=== PATIENT | female | born 1985 | race Caucasian/White ===

== ENCOUNTER 2023-05-14 07:11 | Inpatient (IN) | payer BC ==
[2023-05-13 14:10] VITALS: BMI 35.7
[2023-05-14] MEDS ORDERED: PROPOFOL 20 ML ONE (10:05)
[2023-05-14] MEDS ORDERED: Fentanyl 250 MCG/5 ML VIAL ONE (10:05)
[2023-05-14] MEDS ORDERED: Rocuronium Bromide 10 MG/ML (10ML VIAL) ONE ×2 (10:07→13:25)
[2023-05-14] MEDS ORDERED: Lidocaine 1% PF 5 ML VIAL ONE (10:07)
[2023-05-14] MEDS ORDERED: EPINEPHrine 1 MG/ML VIAL ONE (10:59)
[2023-05-14] MEDS ORDERED: Thrombin 5000 UNITS/5 ML VIAL ONE (10:59)
[2023-05-14] MEDS ORDERED: Vancomycin 1 GM VIAL ONE ×2 (10:59→14:31)
[2023-05-14] MEDS ORDERED: Bupivacaine 0.25% HCL 30 ML VIAL ONE (10:59)
[2023-05-14] MEDS ORDERED: Bupivacaine PF 0.5% 30 ML VIAL ONE (10:59)
[2023-05-14] MEDS ORDERED: Sodium Chloride 0.9% 100 ML ONE (11:10)
[2023-05-14] MEDS ORDERED: CEFAZOLIN 2 GM VIAL ONE (11:10)
[2023-05-14] MEDS ORDERED: Promethazine HCl 12.5 MG SUPP PR PRN (11:46)
[2023-05-14] MEDS ORDERED: diphenhydrAMINE 50 MG/ML VIAL IVP PRN (11:46)
[2023-05-14] MEDS ORDERED: Acetaminophen 325 MG TAB PO PRN (11:46)
[2023-05-14] MEDS ORDERED: HYDROcodone/Acetaminophen 7.5/325 mg Tablet PO PRN (11:46)
[2023-05-14] MEDS ORDERED: Bisacodyl 10 MG SUPP PR PRN (11:46)
[2023-05-14] MEDS ORDERED: Mag-Al 1200 mg/1200 mg/30 ML UDCUP PO PRN (11:46)
[2023-05-14] MEDS ORDERED: CEFAZOLIN 2 GM in Sodium Chloride 0.9% 100 ML IVPB SCH (12:00)
[2023-05-14] MEDS ORDERED: Dexamethasone 20 MG/5 ML VIAL ONE (12:32)
[2023-05-14] MEDS ORDERED: Ondansetron PF 4 MG/2 ML Vial ONE (15:21)
[2023-05-14] MEDS ORDERED: SUGAMMADEX SODIUM 200 MG/2 ML VIAL ONE (15:49)
[2023-05-14] MEDS ORDERED: HYDROmorphone 2 MG/ML VIAL SLOW IVP PRN (16:14)
[2023-05-14] MEDS ORDERED: Promethazine HCl 25 MG/ML VIAL IM PRN (16:14)
[2023-05-14] MEDS ORDERED: Ondansetron HCl/PF 4 MG/2 ML Vial IVP PRN (16:14)
[2023-05-14] MEDS ORDERED: HYDROmorphone 0.5 MG/0.5 ML SYRINGE ONE ×3 (16:14→16:31)
[2023-05-14] MEDS ORDERED: fentaNYL PF 100 MCG/2 ML SYRINGE ONE ×2 (16:40→16:57)
[2023-05-14] MEDS ORDERED: fentaNYL 50 mcg/mL 1 mL Vial ONE (17:24)
[2023-05-14] MEDS: HYDROcodone/Acetaminophen 10/325 mg Tablet PO PRN (19:29)
[2023-05-14] MEDS: BuPROPion XL 150 MG ER.TAB PO SCH (19:29)
[2023-05-14] MEDS: CEFAZOLIN 2 GM in Sodium Chloride 0.9% 100 ML IVPB SCH (19:30)
[2023-05-14] MEDS: Sodium Chloride 0.9% 1,000 ML IV SCH (19:31)
[2023-05-14] MEDS: Morphine 2 MG/ML VIAL SLOW IVP PRN (21:11)
[2023-05-14] MEDS: tiZANidine HCl 4 MG TAB PO PRN (21:11)
[2023-05-14] MEDS: Ondansetron PF 4 MG/2 ML Vial IVP PRN (21:11)
[2023-05-15] MEDS: Acetaminophen/Codeine 30-300mg Tablet PO PRN (20:39)
[2023-05-16 08:09] VITALS: BP 99/66; TEMP 99
== END 2023-05-16 17:42 | disposition home or self-care (01) | DRG 30 ==
LOC: SURG A 07:11
PROVIDERS: ADMIT Neurological Surgery; ATTEND Neurological Surgery
PROC: 001U0J6 Bypass Spinal Canal to Peritoneal Cavity with Synthetic Substitute, Open Approach (ICD-10-PCS; principal; 2023-05-14)
PROC: 00PU0JZ Removal of Synthetic Substitute from Spinal Canal, Open Approach (ICD-10-PCS; 2023-05-14)
PROC: 0W9G40Z Drainage of Peritoneal Cavity with Drainage Device, Percutaneous Endoscopic Approach (ICD-10-PCS; 2023-05-14)
DX: T85.615A Breakdown (mechanical) of other nervous system device, implant or graft, initial encounter (principal); G93.2 Benign intracranial hypertension; G93.0 Cerebral cysts; I10 Essential (primary) hypertension; Z90.49 Acquired absence of other specified parts of digestive tract; Z79.899 Other long term (current) drug therapy; Z87.891 Personal history of nicotine dependence; Y83.1 Surgical operation with implant of artificial internal device as the cause of abnormal reaction of the patient, or of later complication, without mention of misadventure at the time of the procedure
CPT/HCPCS: C1776; C1889; J0171; J0665; J1100; J1170; J2272; J2405; J2704; J3010; J3370; J3490; J7050